=== PATIENT | female | born 1955 | race Caucasian/White ===

== ENCOUNTER 2016-12-20 05:29 | Outpatient (CLI) | payer MEDICARE, MEDICAID ==
[~2016-12-20] VITALS: Ht 157.5 cm; Wt 49.9 kg
== END 2016-12-20 12:55 ==
LOC: PREOP 05:29
PROVIDERS: ATTEND Surgery
DX: Z01.818 Encounter for other preprocedural examination (principal); R19.7 Diarrhea, unspecified; R10.30 Lower abdominal pain, unspecified

== ENCOUNTER 2016-12-22 10:55 | Day surgery (SDC) | payer MEDICARE, MEDICAID ==
[~2016-12-22] VITALS: Ht 157.5 cm; Wt 49.9 kg
--- OUTSIDE RECORDS SUMMARY | 2016-12-22 10:58 | XMS REPORT ---
Author Author DAYNE BRADSHAW [facility] eClinicalWorks Address Unknown Phone Unavailable Care Team Providers Care Burn Table Operator Name Role Phone BRADSHAWDAYNE CP Unavailable Allergies, Adverse Reactions, Alerts Substance Reaction Event Type Codeine Phosphate Info Not Available Drug Allergy Problems Problem Type Condition Code Onset Dates Condition Status Problem Other dyspnea and respiratory abnormalities 786.09 Active Problem Unspecified hearing loss 389.9 Active Problem Mixed hyperlipidemia E78.2 Active Assessment Weight loss R63.4 Active Problem Chest pain, other 786.59 Active Assessment Well woman exam Z01.419 Active Medications Medication Code System Code Instructions Start Date End Date Status Dosage Excedrin Migraine [facility] [address]-42 250-250-65 MG Orally every 6 hrs 2 tablets as needed Benadryl [facility] [address]-11 25 MG Orally every 6 hrs 1 capsule as needed Vitamin B 12 [facility] [address] 250 MCG Orally not defined Procedures Procedure Coding System Code Date SCR PAP SMER;NEW PT OBTAIN PREP&CONVY-LAB CPT-4 Q0091 May 11, 2016 LANDRUM VAG, DNA, DIR PROBE CPT-4 79042 May 11, 2016 [facility] VISIT NEW PATIENT CPT-4 G0466 May 11, 2016 Office Visit, Est Pt., Level 4 CPT-4 31444 May 11, 2016 [facility] VISIT ESTABLISHED PATIENT CPT-4 G0467 May 11, 2016 Vital Signs Date/Time: May 11, 2016 Cardiac Monitoring Heart Rate 78 bpm Weight 110.3 lbs Height 62 in BMI 20.17 Index Blood Pressure Diastolic 60 mmHg Blood Pressure Systolic 104 mmHg Results Name Result Date Reference Range Unit Abnormality Flag CULTURE, GENITAL ----Genital Culture, Routine Final report [id number] GC/CHLAMYDIA (SWAB OR URINE)-RAPID ----Chlamydia trachomatis, ELVIN Negative [id number] Negative ----Neisseria gonorrhoeae, ELVIN Negative [id number] Negative TRICHOMONAS (IN HOUSE) ----TRICHOMONAS negative [id number] ----Control + [id number] ----Lot # [id number] ----Exp date [id number] BACTERIAL VAGINOSIS (IN HOUSE) ----Exp date [id number] ----Control + [id number] ----Lot # [id number] ----RESULTS negative [id number] PDF Report ----PDF Report1 [facility] [id number] Mammogram, Bilateral Screening PAP TEST, HPV IF ASCUS ----HPV, high-risk Negative [id number] Negative ----. . [id number] Summary Purpose eClinicalWorks Submission
--- OUTSIDE RECORDS SUMMARY | 2016-12-22 10:59 | XMS REPORT | Continuity of Care Document ---
Author Author [facility] Address Unknown Phone Unavailable Allergies Active Description Code Type Severity Reaction Onset Reported/Identified Relationship to Patient Clinical Status Yes codeine Drug Allergy N/A N/A 08/28/2008 Yes Bactrim Drug Allergy N/A N/A 07/08/2010 Medications Problems Date Dx Coded Attending Type Code Diagnosis Diagnosed By 02/05/2008 NAUN BLANDON APRN R 786.05 shortness of breath 02/05/2008 JOSEFA ALVARENGA MD 786.05 shortness of breath 04/23/2008 NANU BLANDON APRN R 380.4 CERUMEN IMPACTION 04/23/2008 JOSEFA ALVARENGA MD 380.4 CERUMEN IMPACTION 08/28/2008 NAUN BLANDON APRN R 599.0 URINARY TRACT INFECTION 08/28/2008 NAUN BLANDON APRN R 724.2 lower back pain 08/28/2008 JOSEFA ALVARENGA MD 599.0 URINARY TRACT INFECTION 08/28/2008 JOSEFA ALVARENGA MD N 724.2 lower back pain 11/28/2009 NAUN BLANDON APRN R 462 PHARYNGITIS ACUTE 11/28/2009 NAUN BLANDON APRN R 465.9 UPPER RESPIRATORY INFECTION 11/28/2009 NAUN BLANDON APRN R 786.2 COUGH 11/28/2009 JOSEFA ALVARENGA MD N 462 PHARYNGITIS ACUTE 11/28/2009 JOSEFA ALVARENGA MD N 465.9 UPPER RESPIRATORY INFECTION 11/28/2009 JOSEFA ALVARENGA MD N 786.2 COUGH 07/08/2010 NAUN BLNADON APRN R 466.0 ACUTE BRONCHITIS 07/08/2010 JOSEFA ALVARENGA MD N 466.0 ACUTE BRONCHITIS 07/22/2010 NAUN BLANDON APRN R 611.71 BREAST PAIN 07/22/2010 NAUN BLANDON APRN R V72.31 ROUTINE GYNECOLOGICAL EXAMINATION 07/22/2010 JOSEFA ALVARENGA MD 611.71 BREAST PAIN 07/22/2010 JOSEFA ALVARENGA MD V72.31 ROUTINE GYNECOLOGICAL EXAMINATION 08/30/2013 NAUN BLANDON APRN 389.9 UNSPECIFIED HEARING LOSS 08/30/2013 NAUN BLANDON APRN 786.09 RESPIRATORY ABNORMALITY OTHER 08/30/2013 NAUN BLANDON APRN 786.59 OTHER CHEST PAIN 08/30/2013 JOSEFA ALVARENGA MD 389.9 UNSPECIFIED HEARING LOSS 08/30/2013 JOSEFA ALVARENGA MD 786.09 RESPIRATORY ABNORMALITY OTHER 08/30/2013 JOSEFA ALVARENGA MD 786.59 OTHER CHEST PAIN Procedures Code [place] [address] EKG, TRACING 12/2013 99371 ROUTINE VENIPUNCTURE 09/03/2013 OTOLARYNG REGGIE JENNINGS 09/03/2013 91526 LIPID PANEL 09/03 64373 CBC 09/03/2013 [id number] GFR CALC (RESULT ONLY) 09/03/2013 08114 CMP 09/03/2013 89315 TSH 09/03/2013 79080 BNP 09/04/2013 62738 UA W/ CULTURE IF INDICATED 01/01/2014 Results Encounters ACCT No. Visit Date/Time Discharge Status Pt. Type Provider Facility Loc./Unit Complaint [id number] 01/01/2014 12:59:00 01/01/2014 23: 59:59 CLS Outpatient JOSEFA ALVARENGA MD [id number] 09/03/2013 10:12:00 09/03/2013 23: 59:59 CLS Outpatient NAUN BLANDON APRN
[2016-12-22] MEDS ORDERED: LACTATED RINGERS 1,000 ML IV STA (12:11)
[2016-12-22 12:22] VITALS: BP 128/86
[2016-12-22] MEDS ORDERED: ASPI1TAB22 PO (12:27)
[2016-12-22] MEDS ORDERED: DIPH25CA79 PO (12:27)
[2016-12-22] MEDS ORDERED: proPOfol 200 MG/20 ML (DIPRIVAN) VIAL IV ONE (12:48)
--- NOTE | 2016-12-22 12:51 | Progress Note-Pre Operative ---
Pre-Operative Progress Note H&P Reviewed The H&P was reviewed, patient examined and no changes noted. Date Seen by Provider: Dec 22, 2016 Time Seen by Provider: 12:51 Date H&P Reviewed: Dec 22, 2016 Time H&P Reviewed: 12:51 Pre-Operative Diagnosis: lower abdominal pain diarrhea FRANKY DUNN DO Dec 22, 2016 12:51
[2016-12-22 13:35] VITALS: BP 157/89
[2016-12-22 14:00] VITALS: BP 145/81
[2016-12-22 14:10] VITALS: BP 145/81
--- NOTE | 2016-12-22 15:37 | Operative Report ---
Operative Report Date of Procedure/Surgery Dec 22, 2016 Surgeon (s) FRANKY DUNN DO Cell Tower Climber (s): na Post-Operative Diagnosis mucosal changes at anus Procedure Performed colonoscopy with random cold biopsies and cold biopsies anal mucosa Description of Procedure Anesthesia Type: Per Anesthesia Estimated blood loss (mL): scant Specimen(s) collected/removed random cold biopsies, cold biopsies anus Packing: na Description of the Procedure COMPLICATIONS: None. INDICATIONS: The patient is a 61 female who presented with lower quadrant abdominal pain and diarrhea. She was recommended to have colonoscopy. She understands the risks and benefits and wished to proceed with procedure. Consent was signed and on the chart. The patient was taken to the endoscopy suite, placed in left lateral recumbent position. Timeout was performed. Digital rectal exam was performed and there were no palpable polyps, masses or ulcerations, there was a rough feel to the anal mucosa. Scope was inserted in the rectum and advanced all the way to the cecum with minimal difficulty. Prep was adequate. Scope was then slowly retracted back. There were no polyps, masses or ulcerations within the cecum, ascending, transverse, descending and sigmoid colon. Once in the rectum, scope was attempted to be retroflexed but was unable due to narrow rectum. Scope was returned to its normal position, slowly withdrawn multiple times noting no pathology until the anus. There was some slight raised appearance of the mucosa, cold biopsies were obtaine and then scope withdrawn until completely removed. The patient tolerated procedure well without any complications. The patient was taken to recovery room in stable condition. RECOMMENDATIONS: Patient will follow up in the office to discuss pathology results 2-3 weeks. The patient would recommend repeat colonoscopy if she has any problems at that time; otherwise depending on pathology results. Findings of the Procedure see above Allergies and Home Medications Allergies Coded Allergies: codeine (Verified Allergy, Unknown, 12/20/16) Home Medications Aspirin/Acetaminophen/Caffeine 1 Each Tablet, 1 EACH PO DAILY PRN for HEADACHE, (Reported) Diphenhydramine HCl 25 Mg Capsule, 25 MG PO DAILY, (Reported) FRANKY DUNN DO Dec 22, 2016 3:37 pm
== END 2016-12-22 14:10 | disposition home or self-care (01) ==
LOC: ENDO 10:55
PROVIDERS: ATTEND Surgery
DX: R19.7 Diarrhea, unspecified (principal); D01.3 Carcinoma in situ of anus and anal canal
CPT/HCPCS: 88305

== ENCOUNTER 2017-09-13 05:37 | Outpatient (CLI) | payer MEDICARE, MEDICAID ==
[~2017-09-13] VITALS: Ht 157.5 cm; Wt 51.7 kg
[~2017-09-13 05:37] MED LIST: ASPI-789 PO; DIPH25CA79 PO
== END 2017-09-13 11:11 ==
LOC: PREOP 05:37
PROVIDERS: ATTEND Surgery
DX: Z01.818 Encounter for other preprocedural examination (principal); D01.3 Carcinoma in situ of anus and anal canal

== ENCOUNTER 2017-09-19 08:03 | Day surgery (SDC) | payer MEDICARE, MEDICAID ==
[~2017-09-19] VITALS: Ht 157.5 cm; Wt 51.7 kg
[2017-09-19] MEDS ORDERED: LACTATED RINGERS 1,000 ML IV STA (08:12)
[2017-09-19] MEDS ORDERED: LACTATED RINGERS 1,000 ML IV ONE (08:25)
[2017-09-19 08:35] VITALS: BP 126/77
[2017-09-19] MEDS ORDERED: proPOfol 200 MG/20 ML (DIPRIVAN) VIAL IV ONE (08:41)
[2017-09-19] MEDS ORDERED: MIDAZOLAM 2 MG/2 ML (VERSED) VIAL ONE (08:41)
--- NOTE | 2017-09-19 08:44 | Progress Note-Pre Operative ---
Pre-Operative Progress Note H&P Reviewed The H&P was reviewed, patient examined and no changes noted. Date Seen by Provider: Sep 19, 2017 Time Seen by Provider: 08:43 Date H&P Reviewed: Sep 19, 2017 Time H&P Reviewed: 08:43 Pre-Operative Diagnosis: anal intraepithelial neoplasia III FRANKY DUNN DO Sep 19, 2017 08:44
--- NOTE | 2017-09-19 09:16 | Progress Note-Post Operative ---
Post-Operative Progess Note Surgeon (s)/Boat Driver (s) Surgeon FRANKY DUNN DO Boat Driver: na Pre-Operative Diagnosis anal intraepithelial neoplasia III Post-Operative Diagnosis same Procedure & Operative Findings Date of Procedure 09/19/17 Procedure Performed/Findings flexible sigmoidoscopy with fulgaration of ain Anesthesia Type per boat puller Estimated Blood Loss Estimated blood loss (mL): na Specimens/Packing Specimens Removed na FRANKY DUNN DO Sep 19, 2017 09:16
--- NOTE | 2017-09-19 09:17 | Discharge Inst-Simple/Standard ---
Discharge Inst-Standard Patient Instructions/Follow Up Plan of Care/Instructions/FU: 3 weeks Donald Activity as Tolerated: Yes Discharge Diet: Regular Diet FRANKY DUNN DO Sep 19, 2017 09:17
--- NOTE | 2017-09-19 09:29 | Anesthesia-General Post-Op ---
MAC Patient Condition Mental Status/LOC: Same as Preop Cardiovascular: Satisfactory Nausea/Vomiting: Absent Respiratory: Satisfactory Pain: Controlled Complications: Absent Post Op Complications Complications None Follow Up Care/Instructions Patient Instructions None needed. Anesthesiology Discharge Order Discharge Order Patient is doing well, no complaints, stable vital signs, no apparent adverse anesthesia problems. No complications reported per nursing. RICKEY MILLS CRNA Sep 19, 2017 09:29
[2017-09-19 09:33] VITALS: BP 94/42
[2017-09-19 09:55] VITALS: BP 125/89
[2017-09-19 10:01] VITALS: BP 125/89
--- NOTE | 2017-09-19 10:47 | OPERATIVE REPORT ---
DATE OF SERVICE: 09/19/2017 PREOPERATIVE DIAGNOSIS: Anal intraepithelial neoplasia 3. POSTOPERATIVE DIAGNOSIS: Anal intraepithelial neoplasia 3. PROCEDURE: Flexible sigmoidoscopy with fulguration of AIN. SURGEON: Franky Bennett DO ANESTHESIA: Per DRYWALL TAPER HELPER. ESTIMATED BLOOD LOSS: None. COMPLICATIONS: None. INDICATIONS: The patient is a 62-year-old female with AIN3. She need follow up inspection and possible fulguration. She understands risks and benefits of procedure and wished to proceed with procedure. Consent was signed on the chart. DESCRIPTION OF PROCEDURE: The patient was taken to the endoscopy suite, placed in left lower recumbent position. Timeout was performed. Scope inserted into the anus. A digital rectal exam was performed. A small area that is palpable of some rough anal changes. Scope was inserted into the rectum and advanced all the way up into the sigmoid region of the colon. Prep was adequate. Scope was then slowly retracted back. There were no polyps, mass or ulcerations within the sigmoid colon. Scope was retracted back into the rectum where it was also retroflexed noting other pathology. As the scope was being slowly retracted back in the proximal portion of the anus, there is a small area consistent with anal intraepithelial neoplasia. This area was fulgurated. The scope was then slowly retracted back . The patient tolerated the procedure well without any complications and taken to recovery room in stable condition. Job ID: [id number] DocumentID: [id number] Dictated Date: 09/19/2017 09:24:09 Oral Surgery Technician Date: 09/19/2017 10:46:50 Dictated By: FRANKY BENNETT DO
== END 2017-09-19 10:03 | disposition home or self-care (01) ==
LOC: ENDO 08:03
PROVIDERS: ATTEND Surgery
DX: D01.3 Carcinoma in situ of anus and anal canal (principal)

== ENCOUNTER 2018-10-02 05:44 | Outpatient (CLI) | payer MEDICARE, MEDICAID ==
[~2018-10-02] VITALS: Ht 157.5 cm; Wt 51.7 kg
== END 2018-10-02 12:03 | disposition home or self-care (01) ==
LOC: PREOP 05:44
PROVIDERS: ATTEND Surgery
DX: Z01.818 Encounter for other preprocedural examination (principal)

== ENCOUNTER 2018-10-09 12:20 | Day surgery (SDC) | payer MEDICARE, MEDICAID ==
[~2018-10-09] VITALS: Ht 157.5 cm; Wt 51.7 kg
--- OUTSIDE RECORDS SUMMARY | 2018-10-09 12:25 | XMS REPORT ---
Author Author Migration, Doctor Organization [facility] Address Unknown Phone Unavailable Care Team Providers Care Bunch Maker Hand Name Role Phone Migration, Doctor Unavailable Unavailable PROBLEMS Type Condition ICD9-CM Code [id number] Code Onset Dates Condition Status SNOMED Code Problem Chest pain, other 786.59 Active 64486043 Problem Anal warts A63.0 Active 663409589 Problem Constipation, unspecified constipation type K59.00 Active 74067483 Problem Other dyspnea and respiratory abnormalities 786.09 Active 332340129 Problem Unspecified hearing loss 389.9 Active 19666873 Problem Mixed hyperlipidemia E78.2 Active 078519543 Problem Risky sexual behavior Z72.51 Active 479863705 ALLERGIES No Information ENCOUNTERS Encounter Location Date Diagnosis [facility] [id number] [place] [address] Jul, Left flank pain R10.9 and Pyelonephritis N12 [facility] [address] [address] May, Well woman exam (no gynecological exam) Z00.00 [facility] [id number] [place] [address] 24 Mar, 2018 LUQ abdominal pain R10.12 and Constipation, unspecified constipation type K59.00 [facility] [id number] [place] [address] 18 Feb, 2017 Encounter for immunization Z23 [place] [address] [address] 13 Feb, 2017 [place] [address] [address] 08 Feb, 2017 Risky sexual behavior Z72.51 [facility] [address] [address] 08 Feb, 2017 Anal warts A63.0 and Risky sexual behavior Z72.51 [facility] [address] [address] Apr, Well woman exam Z01.419 and Weight loss R63.4 [facility] [id number] [place] [address] 24 Nov, 2015 Urinary pain R30.9 and Urinary tract infection without hematuria, site unspecified N39.0 [facility] [id number] [place] [address] October, Bursitis M71.9 ; Weight loss R63.4 ; Routine check-up Z00.00 and Mixed hyperlipidemia E78.2 [facility] [id number] [place] [address] October, Bursitis M71.9 ; Weight loss R63.4 and Mixed hyperlipidemia E78.2 [facility] [id number] [place] [address] October, Headache, unspecified headache type R51 [facility] [id number] [place] [address] Sep, [facility] [id number] [place] [address] Sep, [facility] [address] [address] Dec, [facility] [id number] [place] [address] Dec, [facility] [id number] [place] [address] Aug, [facility] [id number] [place] [address]842- 14[address] Aug, [facility] [address] [address] Aug, [facility] [address] [address] Aug, [facility] [address] [facility] [id number] [address] Aug, [facility] [id number] [address] Aug, [facility] [address] [facility] [id number] [address] Feb, [facility] [address] [facility] [id number], [place] [address] Jun, IMMUNIZATIONS No Known Immunizations SOCIAL HISTORY Never Assessed REASON FOR VISIT [facility] [place] CARE VITAL SIGNS MEDICATIONS Medication Instructions Dosage Frequency Start Date End Date Duration Status Flexeril 10 mg 1 tablet by Oral route 3 times per day PRN muscle spasm Dec, Active RESULTS No Results PROCEDURES No Known procedures INSTRUCTIONS MEDICATIONS ADMINISTERED No Known Medications MEDICAL (GENERAL) HISTORY Type Description Date Surgical History tubal ligation Surgical History cataract/lazer surgery on eyes
--- OUTSIDE RECORDS SUMMARY | 2018-10-09 12:26 | XMS REPORT ---
Author Author SEAN ARTEAGA Organization [facility] Address [address] [place] [address] Care Team Providers Care Residential Sales Representative Name Role Phone SEAN ARTEAGA Unavailable PROBLEMS Type Condition ICD9-CM Code [id number] Code Onset Dates Condition Status SNOMED Code Problem Anal warts A63.0 Active 317931589 Problem Risky sexual behavior Z72.51 Active 625437852 Problem Other dyspnea and respiratory abnormalities 786.09 Active 877010165 Problem Chest pain, other 786.59 Active 59069428 Problem Mixed hyperlipidemia E78.2 Active 825822949 Problem Unspecified hearing loss 389.9 Active 53389191 ALLERGIES No Information ENCOUNTERS Encounter Location Date Diagnosis [facility] [id number] [place] [address] 18 Feb, 2017 Encounter for immunization Z23 [facility] [id number] [place] [address]- [address] 13 Feb, 2017 [place] [id number] [place] [address]- [address] 08 Feb, 2017 Risky sexual behavior Z72.51 [facility] [id number] [place] [address]- [address] 08 Feb, 2017 Anal warts A63.0 and Risky sexual behavior Z72.51 [facility] [id number] [place] [address]- 8[address] 16 Apr, 2016 Well woman exam Z01.419 and Weight loss R63.4 [facility] [id number] [place] [address] -[address] 24 Nov, 2015 Urinary pain R30.9 and Urinary tract infection without hematuria, site unspecified N39.0 [facility] [id number] [place] [address] October, Bursitis M71.9 ; Weight loss R63.4 ; Routine check-up Z00.00 and Mixed hyperlipidemia E78.2 [facility] [address], [place] [address] October, Bursitis M71.9 ; Weight loss R63.4 and Mixed hyperlipidemia E78.2 [facility] [address], [place] [address] October, Headache, unspecified headache type R51 [facility] [address], [place] [address] Sep, [facility] [id number] [place] [address] Sep, [facility] [id number] [address] Dec, [facility] [id number] [address] Dec, [facility] [address], [place] [address] Aug, [facility] [id number] [address] Aug, [facility] [address], [place] [address] Aug, [facility] [address], [place] [address] Aug, [facility] [address], [place] [address] Aug, [facility] [id number] [address] Aug, [facility] [address] Feb, [facility] [id number] [address] Jun, IMMUNIZATIONS Vaccine Route Administration Date Status FLUARIX QUAD (3 AND UP) 2017 IM Intramuscular Mar 13, 2017 Administered SOCIAL HISTORY Never Assessed REASON FOR VISIT Flu shot-- Chay Wilson RN PLAN OF CARE Activity Details Follow Up prn Reason: VITAL SIGNS MEDICATIONS Unknown Medications RESULTS No Results PROCEDURES Procedure Date Ordered Result Body Site FLUARIX QUAD (3 & UP)--2014Mar 13, 2017 SINGLE IMMUNIZATION ADMIN Mar 13, 2017 INSTRUCTIONS MEDICATIONS ADMINISTERED No Known Medications MEDICAL (GENERAL) HISTORY Type Description Date Surgical History tubal ligation
--- OUTSIDE RECORDS SUMMARY | 2018-10-09 12:26 | XMS REPORT ---
Author Author DAYNE Mercado Organization [facility] Address [address] [place] [address] Care Team Providers Care Supply Room Clerk Name Role Phone apolinarRehana DAYNE Unavailable PROBLEMS Type Condition ICD9-CM Code JJQ72-EF Code Onset Dates Condition Status SNOMED Code Problem Anal warts A63.0 Active 209343683 Problem Risky sexual behavior Z72.51 Active 416970112 Problem Other dyspnea and respiratory abnormalities 786.09 Active 679743812 Problem Chest pain, other 786.59 Active 25003898 Problem Mixed hyperlipidemia E78.2 Active 768294618 Problem Unspecified hearing loss 389.9 Active 28030597 ALLERGIES No Information ENCOUNTERS Encounter Location Date Diagnosis [facility] [id number] [place] [address] 18 Feb, 2017 Encounter for immunization Z23 [facility] [address] [address] 13 Feb, 2017 [address] [place] [id number] [place] [address]- 94[address] 08 Feb, 2017 Risky sexual behavior Z72.51 [facility] [id number] [place] [address]75- 74[address] 08 Feb, 2017 Anal warts A63.0 and Risky sexual behavior Z72.51 [facility] [id number] [place] [address] 87288- 6070 16 Apr, 2016 Well woman exam Z01.419 and Weight loss R63.4 [facility] [id number] [place] [address] -[address] 24 Nov, 2015 Urinary pain R30.9 and Urinary tract infection without hematuria, site unspecified N39.0 [facility] [id number] [address] October, Bursitis M71.9 ; Weight loss R63.4 ; Routine check-up Z00.00 and Mixed hyperlipidemia E78.2 [facility] [address], [place] [address] October, Bursitis M71.9 ; Weight loss R63.4 and Mixed hyperlipidemia E78.2 [facility] [address] [address] October, Headache, unspecified headache type R51 [facility] [id number] [place] [address]- [address] Sep, [facility] [id number] [address] Sep, [facility] [id number] [address] Dec, [facility] [address], [place] [address] Dec, [facility] [id number], [place] [address] Aug, [facility] [address], [place] [address] Aug, [facility] [address], [place] [address] Aug, [facility] [address] [address] Aug, [facility] [address], [place] [address]- [address] Aug, [facility] [id number] [address]- [address] Aug, [facility] [address] Feb, [facility] [address] [facility] [id number] [address] Jun, IMMUNIZATIONS No Known Immunizations SOCIAL HISTORY Never Assessed REASON FOR VISIT labs ordered by Dr. Bennett PLAN OF CARE VITAL SIGNS MEDICATIONS Unknown Medications RESULTS No Results PROCEDURES No Known procedures INSTRUCTIONS MEDICATIONS ADMINISTERED No Known Medications MEDICAL (GENERAL) HISTORY Type Description Date Surgical History tubal ligation
--- OUTSIDE RECORDS SUMMARY | 2018-10-09 12:26 | XMS REPORT ---
Author Author SEAN ARTEAGA Organization [facility] Address [address] [place] [address] Care Team Providers Care Check Out Cashier Name Role Phone SEAN ARTEAGA Unavailable PROBLEMS Type Condition ICD9-CM Code VRU14-MV Code Onset Dates Condition Status SNOMED Code Problem Anal warts A63.0 Active 149192085 Problem Risky sexual behavior Z72.51 Active 673644561 Problem Other dyspnea and respiratory abnormalities 786.09 Active 299123058 Problem Chest pain, other 786.59 Active 73200974 Problem Mixed hyperlipidemia E78.2 Active 121458552 Problem Unspecified hearing loss 389.9 Active [id number] ALLERGIES No Information ENCOUNTERS Encounter Location Date Diagnosis [facility] [id number] [place] [address] 48738- 9865 18 Feb, 2017 Encounter for immunization Z23 [facility] [id number] [place] [address] 70599- 2294 13 Feb, 2017 [place] [id number] [place] [address] 38202- 2046 08 Feb, 2017 Risky sexual behavior Z72.51 [facility] [id number] [place] [address] 89314- 1423 08 Feb, 2017 Anal warts A63.0 and Risky sexual behavior Z72.51 [facility] [id number] [place] [address] 59656- 0642 16 Apr, 2016 Well woman exam Z01.419 and Weight loss R63.4 [facility] [id number] [place] [address] 00379 -1261 24 Nov, 2015 Urinary pain R30.9 and Urinary tract infection without hematuria, site unspecified N39.0 [facility] [id number] [place] [address] 24591- 4332 October, Bursitis M71.9 ; Weight loss R63.4 ; Routine check-up Z00.00 and Mixed hyperlipidemia E78.2 [facility] [address], [place] [address] October, Bursitis M71.9 ; Weight loss R63.4 and Mixed hyperlipidemia E78.2 [facility] [address], [place] [address] October, Headache, unspecified headache type R51 [facility] [address] [address] Sep, [facility] [id number] [place] [address] 42979- 9314 Sep, [facility] [id number] [address] 7[address] Dec, [facility] [id number] [address] 6[address] Dec, [facility] [address], [place] [address] 113[address] Aug, [facility] [id number] [address] 53[address] Aug, [facility] [address], [place] [address] 6[address] Aug, [facility] [address], [place] [address] 9064 Aug, [facility] [address], [place] [address] 2689 Aug, [facility] [id number] [address] 6[address] Aug, [facility] [address] [address] Feb, [facility] [id number] [address] Jun, IMMUNIZATIONS No Known Immunizations SOCIAL HISTORY Never Assessed REASON FOR VISIT Lab results PLAN OF CARE VITAL SIGNS MEDICATIONS Unknown Medications RESULTS No Results PROCEDURES No Known procedures INSTRUCTIONS MEDICATIONS ADMINISTERED No Known Medications MEDICAL (GENERAL) HISTORY Type Description Date Surgical History tubal ligation
--- OUTSIDE RECORDS SUMMARY | 2018-10-09 12:26 | XMS REPORT ---
Author Author DAYNE Mercado Organization [facility] Address [address] [place] [address] Care Team Providers Care Shot Man Name Role Phone apolinarRehana DAYNE Unavailable PROBLEMS Type Condition ICD9-CM Code DQW87-NC Code Onset Dates Condition Status SNOMED Code Problem Anal warts A63.0 Active 922655636 Problem Risky sexual behavior Z72.51 Active 017942057 Problem Other dyspnea and respiratory abnormalities 786.09 Active 438193147 Problem Chest pain, other 786.59 Active 55263104 Problem Mixed hyperlipidemia E78.2 Active 115019594 Problem Unspecified hearing loss 389.9 Active 21613797 ALLERGIES No Information ENCOUNTERS Encounter Location Date Diagnosis [facility] [id number] [place] [address] 27620- 9870 18 Feb, 2017 Encounter for immunization Z23 [facility] [address] [address]- 8242 13 Feb, 2017 [place] [id number] [place] [address] 68194- 3677 08 Feb, 2017 Risky sexual behavior Z72.51 [facility] [id number] [place] [address] 64351- 9912 08 Feb, 2017 Anal warts A63.0 and Risky sexual behavior Z72.51 [facility] [id number] [place] [address] 64786- 6973 16 Apr, 2016 Well woman exam Z01.419 and Weight loss R63.4 [facility] [id number] [place] [address] 35157 -2522 24 Nov, 2015 Urinary pain R30.9 and Urinary tract infection without hematuria, site unspecified N39.0 [facility] [id number] [address] October, Bursitis M71.9 ; Weight loss R63.4 ; Routine check-up Z00.00 and Mixed hyperlipidemia E78.2 [facility] [address], [place] [address] 359[address] October, Bursitis M71.9 ; Weight loss R63.4 and Mixed hyperlipidemia E78.2 [facility] [address], [place] [address] October, Headache, unspecified headache type R51 [facility] [id number] [place] [address] 70528- 4583 Sep, [facility] [id number] [address] 9112 Sep, [facility] [id number] [address] 7312 Dec, [facility] [address], [place] [address]- 3[address] Dec, [facility] [id number] [address] Aug, [facility] [address], [place] [address]- 9330 Aug, [facility] [address], [place] [address] 2523 Aug, [facility] [address], [place] [address]- 9868 Aug, [facility] [address], [place] [address]- 9902 Aug, [facility] [id number], [place] [address] 9430 Aug, [facility] [address] [address] Feb, [facility] [address] [facility] [id number] [place] [address] Jun, IMMUNIZATIONS No Known Immunizations SOCIAL HISTORY Never Assessed REASON FOR VISIT Lab (walk-in)--[facility] PLAN OF CARE VITAL SIGNS MEDICATIONS Unknown Medications RESULTS Name Result Date Reference Range HIV ANTIGEN/ANTIBODY 2017-03-03 HIV Screen 4th Generation wRfx Non Reactive Non Reactive PROCEDURES Procedure Date Ordered Result Body Site LAB NOT BILLED BY [facility] Mar 03, 2017 VENIPJJ, ROUTINE* Mar 03, 2017 INSTRUCTIONS MEDICATIONS ADMINISTERED No Known Medications MEDICAL (GENERAL) HISTORY Type Description Date Surgical History tubal ligation
--- OUTSIDE RECORDS SUMMARY | 2018-10-09 12:26 | XMS REPORT ---
Author Author ANDREW SHI [facility] Address [address] [place] [address] Care Team Providers Care Dock Hand Name Role Phone ANDREW SHI Unavailable PROBLEMS Type Condition ICD9-CM Code OGV99-TL Code Onset Dates Condition Status SNOMED Code Problem Chest pain, other 786.59 Active 13827165 Problem Constipation, unspecified constipation type K59.00 Active 03280481 Problem Anal warts A63.0 Active 054248809 Problem Unspecified hearing loss 389.9 Active 17698960 Problem Other dyspnea and respiratory abnormalities 786.09 Active 241218522 Problem Risky sexual behavior Z72.51 Active 562019421 Problem Mixed hyperlipidemia E78.2 Active 255740501 ALLERGIES Substance Reaction Event Type Date Status Codeine Phosphate Unknown Drug Allergy Mar, Active ENCOUNTERS Encounter Location Date Diagnosis [facility] [id number] [place] [address] 26395 -5250 Mar, LUQ abdominal pain R10.12 and Constipation, unspecified constipation type K59.00 [facility] [address] [place] [address] 41068- 1008 18 Feb, 2017 Encounter for immunization Z23 [facility] [id number] [place] [address] 80749- 1255 13 Feb, 2017 [facility] [address] [place] [address] 70764- 2742 Feb, Risky sexual behavior Z72.51 [facility] [id number] [place] [address] 14132- 5748 Feb, Anal warts A63.0 and Risky sexual behavior Z72.51 [facility] [id number] [place] [address] 32270- 8930 Apr, Well woman exam Z01.419 and Weight loss R63.4 [facility] [address] [address] Nov, Urinary pain R30.9 and Urinary tract infection without hematuria, site unspecified N39.0 [facility] [id number] [place] [address] 01432- 5639 October, Bursitis M71.9 ; Weight loss R63.4 ; Routine check-up Z00.00 and Mixed hyperlipidemia E78.2 [facility] [id number] [place] [address] 97955- 7985 October, Bursitis M71.9 ; Weight loss R63.4 and Mixed hyperlipidemia E78.2 [facility] [id number] [place] [address] 63685 -8917 October, Headache, unspecified headache type R51 [facility] [id number] [place] [address] 70562- 3862 Sep, [facility] [id number] [place] [address] 70815- 1134 Sep, [facility] [id number] [place] [address] 16104- 9419 Dec, [facility] [address] [address]- 6693 Dec, [facility] [id number] [place] [address] 00210- 8774 Aug, [facility] [address] [place] [address] 67792- 9036 Aug, [facility] [id number] [place] [address] 38106- 9462 Aug, [facility] [address] [address]- 3619 Aug, [facility] [id number] [place] [address] 23016- 2546 Aug, [facility] [address] [facility] [id number] [place] [address]- 2546 Aug, [facility] [address] [facility] [id number] [address] 2546 Feb, [facility] [address] [facility] [id number] [place] [address] 2546 Jun, IMMUNIZATIONS No Known Immunizations SOCIAL HISTORY Never Assessed REASON FOR VISIT left side pain x3 days JStrasserRN PLAN OF CARE Activity Details Follow Up prn Reason: VITAL SIGNS Height 62 in 2018-04-18 Weight 114.4 lbs 2018-04-18 Temperature 97.7 degrees Fahrenheit 2018-04-18 Heart Rate 78 bpm 2018-04-18 Respiratory Rate 22 2018-04-18 BMI 20.92 kg/m2 2018-04-18 Blood pressure systolic 140 mmHg 2018-04-18 Blood pressure diastolic 82 mmHg 2018-04-18 MEDICATIONS Medication Instructions Dosage Frequency Start Date End Date Duration Status Benadryl 25 MG Orally every 6 hrs 1 capsule as needed 6h Active Ibuprofen 200 MG Orally Three times a day 1 tablet with food or milk as needed 8h Active Excedrin Migraine 250-250-65 MG Orally every 6 hrs 2 tablets as needed 6h Active RESULTS Name Result Date Reference Range UA LONG DIP (IN HOUSE) 2018-04-18 Lot # [id number] Exp date 05-25-18 Clarity clear Color dark yellow Odor none GLU negative EDIS negative KET negative SG 1.020 BLO negative pH 5.5 Protein negative URO 0.2 NIT negative DENIZ 1+ Lot # [id number] Exp date May 2018 Xray : Abdomen 2v (Upright and KUB) - IN HOUSE 2018-04-18 PROCEDURES Procedure Date Ordered Result Body Site X-RAY EXAM ABDOMEN 2 VIEWS Apr 18, 2018 URINALYSIS, AUTO, W/O SCOPE Apr 18, 2018 [facility] VISIT ESTABLISHED PATIENT Apr 18, 2018 INSTRUCTIONS MEDICATIONS ADMINISTERED No Known Medications MEDICAL (GENERAL) HISTORY Type Description Date Surgical History tubal ligation
--- OUTSIDE RECORDS SUMMARY | 2018-10-09 12:26 | XMS REPORT ---
Author Author SHIELA KUMAR Organization [facility] Address [address] [place] [address] Care Team Providers Care Procurement Services Manager Name Role Phone SHIELA KUMAR Unavailable PROBLEMS Type Condition ICD9-CM Code OCI10-OE Code Onset Dates Condition Status SNOMED Code Problem Chest pain, other 786.59 Active 24868592 Problem Constipation, unspecified constipation type K59.00 Active 23236991 Problem Anal warts A63.0 Active 034250113 Problem Unspecified hearing loss 389.9 Active 48413339 Problem Other dyspnea and respiratory abnormalities 786.09 Active 037366148 Problem Risky sexual behavior Z72.51 Active 075696358 Problem Mixed hyperlipidemia E78.2 Active 689356912 ALLERGIES Substance Reaction Event Type Date Status Codeine Phosphate Unknown Drug Allergy May, Active ENCOUNTERS Encounter Location Date Diagnosis [facility] [id number] [place] [address] 06715- 3538 May, Well woman exam (no gynecological exam) Z00.00 [facility] [id number] [place] [address] 57845 -0760 Mar, LUQ abdominal pain R10.12 and Constipation, unspecified constipation type K59.00 [facility] [id number] [place] [address] 17193- 3558 18 Feb, 2017 Encounter for immunization Z23 [facility] [id number] [place] [address] 18532- 6337 Feb, [place] [address] [address] Feb, Risky sexual behavior Z72.51 [facility] [id number] [place] [address] 11819- 5320 Feb, Anal warts A63.0 and Risky sexual behavior Z72.51 [facility] [id number] [place] [address] 21676- 5467 Apr, Well woman exam Z01.419 and Weight loss R63.4 [facility] [id number] [place] [address] 16481 -3773 24 Nov, 2015 Urinary pain R30.9 and Urinary tract infection without hematuria, site unspecified N39.0 [facility] [id number] [place] [address] 17612- 7594 October, Bursitis M71.9 ; Weight loss R63.4 ; Routine check-up Z00.00 and Mixed hyperlipidemia E78.2 [facility] [id number] [place] [address] 20052- 7827 October, Bursitis M71.9 ; Weight loss R63.4 and Mixed hyperlipidemia E78.2 [facility] [id number] [place] [address] 52583 -6636 October, Headache, unspecified headache type R51 [facility] [id number] [place] [address] 44500- 6957 Sep, [facility] [id number] [place] [address] 01616- 1737 Sep, [facility] [id number] [place] [address] 05505- 1204 Dec, [facility] [id number] [place] [address] 67331- 8927 Dec, [facility] [id number] [place] [address] 47178- 1763 Aug, [facility] [id number] [place] [address] 55100- 1404 Aug, [facility] [id number] [place] [address] 02239- 7397 Aug, [facility] [address] [place] 11 Aug, 2013 [facility] [address] [facility] [id number] [address]- [address]14 07 Aug, 2013 [facility] [address] [facility] [id number] 07 Aug, 2013 [facility] [address] [facility] [id number], [place] [address]- 6[address] 06 Feb, 2012 [facility] [address] [facility] [id number], [place] [address] 13 Jun, 2010 IMMUNIZATIONS No Known Immunizations SOCIAL HISTORY Never Assessed REASON FOR VISIT Well Woman Exam. Pap in 2015, results in documents. Mammogram in 2015 as well, results are in diagnostic imaging documents.-[facility] PLAN OF CARE Activity Details Follow Up w/ PCP Reason:routine f/u Pending Test LIPID PANEL Pending Test CMP Pending Test CBC Pending Test HEP C ANTIBODY W/ REFLEX HCV Pending Test THYROID ANALYZER Pending Test A1C VITAL SIGNS Height 62 in 2018-06-05 Weight 113.3 lbs 2018-06-05 Temperature 98.6 degrees Fahrenheit 2018-06-05 Heart Rate 98 bpm 2018-06-05 Respiratory Rate 22 2018-06-05 Oximetry 98 % 2018-06-05 BMI 20.72 kg/m2 2018-06-05 Blood pressure systolic 112 mmHg 2018-06-05 Blood pressure diastolic 68 mmHg 2018-06-05 MEDICATIONS Medication Instructions Dosage Frequency Start Date End Date Duration Status Excedrin Migraine 250-250-65 MG Orally every 6 hrs 2 tablets as needed 6h Active Ibuprofen 200 MG Orally Three times a day 1 tablet with food or milk as needed 8h Active Benadryl 25 MG Orally every 6 hrs 1 capsule as needed 6h Active RESULTS No Results PROCEDURES Procedure Date Ordered Result Body Site LAB NOT BILLED BY [facility] Jun 05, 2018 Hemoglobin Test Send Out 0 dollar Jun 05, 2018 [facility] VISIT ESTABLISHED PATIENT Jun 05, 2018 VENIPUNCT, ROUTINE* Jun 05, 2018 INSTRUCTIONS MEDICATIONS ADMINISTERED No Known Medications MEDICAL (GENERAL) HISTORY Type Description Date Surgical History tubal ligation Surgical History cataract/lazer surgery on eyes
--- OUTSIDE RECORDS SUMMARY | 2018-10-09 12:27 | XMS REPORT | Continuity of Care Document ---
Author Organization Unknown Address Unknown Allergies Active Description Code Type Severity Reaction Onset Reported/Identified Relationship to Patient Clinical Status Yes codeine Drug Allergy N/A N/A 08/28/2008 Yes Bactrim Drug Allergy N/A N/A 07/08/2010 Yes No Known Drug Allergies [id number] Drug Allergy Unknown N/A 12/20/2016 Yes codeine [id number] Drug Allergy Unknown N/A 09/13/2017 Medications There is no data. Problems Date Dx Coded Attending Type Code Diagnosis Diagnosed By 02/05/2008 NAUN BLANDON APRN R 786.05 shortness of breath 02/05/2008 JOSEFA ALVARENGA MD 786.05 shortness of breath 04/23/2008 NAUN BLANDON APRN R 380.4 CERUMEN IMPACTION 04/23/2008 JOSEFA ALVARENGA MD 380.4 CERUMEN IMPACTION 08/28/2008 NAUN BLANDON APRN R 599.0 URINARY TRACT INFECTION 08/28/2008 NAUN BLANDON APRN R 724.2 lower back pain 08/28/2008 JOSEFA ALVARENGA MD 599.0 URINARY TRACT INFECTION 08/28/2008 JOSEFA ALVARENGA MD 724.2 lower back pain 11/28/2009 NAUN BLANDON APRN R 462 PHARYNGITIS ACUTE 11/28/2009 NAUN BLANDON APRN R 465.9 UPPER RESPIRATORY INFECTION 11/28/2009 NAUN BLANDON APRN R 786.2 COUGH 11/28/2009 JOSEFA ALVARENGA MD 462 PHARYNGITIS ACUTE 11/28/2009 JOSEFA ALVARENGA MD 465.9 UPPER RESPIRATORY INFECTION 11/28/2009 JOSEFA ALVARENGA MD N 786.2 COUGH 07/08/2010 NAUN BLANDON APRN R 466.0 ACUTE BRONCHITIS 07/08/2010 JOSEFA ALVARENGA MD 466.0 ACUTE BRONCHITIS 07/22/2010 JAMIA INTERNAL COMMUNICATIONS MANAGER, NAUN R 611.71 BREAST PAIN 07/22/2010 JAMIA BELLAMY, NAUN R V72.31 ROUTINE GYNECOLOGICAL EXAMINATION 07/22/2010 JOSEFA ALVARENGA MD N 611.71 BREAST PAIN 07/22/2010 JOSEFA ALVARENGA MD N V72.31 ROUTINE GYNECOLOGICAL EXAMINATION 08/30/2013 JAMIA BELLAMY, NAUN R 389.9 UNSPECIFIED HEARING LOSS 08/30/2013 JAMIA BELLAMY, NAUN R 786.09 RESPIRATORY ABNORMALITY OTHER 08/30/2013 JAMIA BELLAMY, NAUN R 786.59 OTHER CHEST PAIN 08/30/2013 JOSEFA ALVARENGA MD N 389.9 UNSPECIFIED HEARING LOSS 08/30/2013 JOSEFA ALVARENGA MD N 786.09 RESPIRATORY ABNORMALITY OTHER 08/30/2013 JOSEFA ALVARENGA MD N 786.59 OTHER CHEST PAIN 05/18/2016 DAYNE BRADSHAW FOUNTAIN PEN TURNER Ot Z12.31 ENCNTR SCREEN MAMMOGRAM FOR MALIGNANT NE 05/18/2016 DAYNE BRADSHAW FOUNTAIN PEN TURNER Ot Z12.31 ENCNTR SCREEN MAMMOGRAM FOR MALIGNANT NE 06/08/2016 DAYNE BRADSHAW FOUNTAIN PEN TURNER Ot Z12.31 ENCNTR SCREEN MAMMOGRAM FOR MALIGNANT NE 06/17/2016 DAYNE BRADSHAW FOUNTAIN PEN TURNER Ot Z12.31 ENCNTR SCREEN MAMMOGRAM FOR MALIGNANT NE 12/16/2016 DAYNE BRADSHAW FOUNTAIN PEN TURNER Ot Z12.31 ENCNTR SCREEN MAMMOGRAM FOR MALIGNANT NE 12/20/2016 FRANKY DUNN DO Ot R10.30 LOWER ABDOMINAL PAIN, UNSPECIFIED 12/20/2016 FRANKY DUNN DO Ot R19.7 DIARRHEA, UNSPECIFIED 12/20/2016 FRANKY DUNN DO D Ot Z01.818 ENCOUNTER FOR OTHER PREPROCEDURAL EXAMIN 12/21/2016 FRANKY DUNN DO D Ot R10.30 LOWER ABDOMINAL PAIN, UNSPECIFIED 12/21/2016 FRANKY DUNN DO D Ot R19.7 DIARRHEA, UNSPECIFIED 12/21/2016 FRANKY DUNN DO Ot Z01.818 ENCOUNTER FOR OTHER PREPROCEDURAL EXAMIN 12/22/2016 FRANKY DUNN DO Ot 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 12/22/2016 FRANKY DUNN DO Ot R19.7 DIARRHEA, UNSPECIFIED 12/30/2016 DUNN DO, FRANKY D Ot 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 12/30/2016 DUNN DOFRANKY Ot R19.7 DIARRHEA, UNSPECIFIED 09/13/2017 DUNN DO, FRANKY Johnson Ot 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 09/13/2017 DUNN FRANKY GIPSON Ot Z01.818 ENCOUNTER FOR OTHER PREPROCEDURAL EXAMIN 09/14/2017 DUNN DOFRANKY Ot 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 09/14/2017 DUNN DOFRANKY Ot Z01.818 ENCOUNTER FOR OTHER PREPROCEDURAL EXAMIN 09/14/2017 DAYNE BRADSHAW FOUNTAIN PEN TURNER Ot Z12.31 ENCNTR SCREEN MAMMOGRAM FOR MALIGNANT NE 09/19/2017 [place] DOFRANKY Ot 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 09/21/2017 DUNN FRANKY GIPSON Ot 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 09/24/2018 DAYNE BRADSHAW FOUNTAIN PEN TURNER Ot Z12.31 ENCNTR SCREEN MAMMOGRAM FOR MALIGNANT NE 10/02/2018 DUNN FRANKY GIPSON Ot Z01.818 ENCOUNTER FOR OTHER PREPROCEDURAL EXAMIN 10/08/2018 DUNN FRANKY GIPSON Ot Z01.818 ENCOUNTER FOR OTHER PREPROCEDURAL EXAMIN 10/09/2018 DAYNE BRADSHAW FOUNTAIN PEN TURNER Ot Z12.31 ENCNTR SCREEN MAMMOGRAM FOR MALIGNANT NE Procedures Code [place] [address] EKG, TRACING 08/30/2013 67571 ROUTINE VENIPUNCTURE 09/03/2013 OTOLARYNG REGGIE JENNINGS 09/03/2013 34475 LIPID PANEL 09/03/2013 49655 CBC 09/03/2013 2118653 GFR CALC (RESULT ONLY) 09/03/2013 84509 CMP 09/03/2013 46741 TSH 09/03/2013 00860 BNP 09/04/2013 46797 UA W/ CULTURE IF INDICATED 01/01/2014 Results Test Result Range Chlamydia/GC Amplification - 05/11/16 14:15 Chlamydia trachomatis, ELVIN Negative Negative Neisseria gonorrhoeae, ELVIN Negative Negative Genital Culture, Routine - 05/11/16 14:15 Genital Culture, Routine Note Pap Lb, rfx HPV ASCU - 05/11/16 14:15 DIAGNOSIS: Comment Specimen adequacy: Comment Clinician provided ICD10: Comment Performed by: Comment Electronically signed by: Comment . . Pathologist provided ICD10: Comment Note: Comment . Comment HPV, high-risk - 05/11/16 14:15 HPV, high-risk Negative Negative HIV ANTIGEN/ANTIBODY - 03/03/17 11:29 HIV Screen 4th Generation wRfx Non Reactive Non Reactive Panel [id number] - 03/03/17 11:29 HIV Screen 4th Generation wRfx Non Reactive Non Reactive THYROID ANALYZER - 06/05/18 13:37 TSH 2.51 mIU/L 0.40-4.50 A1C - 06/05/18 13:37 HEMOGLOBIN A1c 5.0 % of total Hgb <5.7 Encounters ACCT No. Visit Date/Time Discharge Status Pt. Type Provider Facility Loc./Unit Complaint [id number] 01/01/2014 12:59:00 01/01/2014 23:59:59 CLS Outpatient JOSEFA ALVARENGA MD [id number] 09/03/2013 10:12:00 09/03/2013 23:59:59 CLS Outpatient NAUN BLANDON APRN [id number] 05/15/2016 13:05:00 Document Registration [id number] 10/02/2018 05:44:00 10/02/2018 12:03:00 DIS Outpatient FRANKY DUNN DO [facility] PREOP COLONOSCOPY [id number] 09/19/2017 08:03:00 09/19/2017 10:03:00 DIS Outpatient FRANKY DUNN DO [facility] ENDO ANAL INTRAEPITHELIAL NEOPLASIA III [id number] 09/13/2017 05:37:00 09/13/2017 11:11:00 DIS Outpatient FRANKY DUNN DO [facility] PREOP FLEX SIGMOIDOSCOPY [id number] 12/22/2016 10:55:00 12/22/2016 14:10:00 DIS Outpatient FRANKY DUNN DO [facility] ENDO DIARRHEA/LOWER ABD PAIN [id number] 12/20/2016 05:29:00 12/20/2016 12:55:00 DIS Outpatient FRANKY DUNN DO [facility] PREOP DIARRHEA/LOWER ABD PAIN [id number] 05/17/2016 12:58:00 05/17/2016 23:59:59 CLS Outpatient DAYNE BRADSHAW [facility] RAD SCREEING [id number] 10/09/2018 12:20:00 ACT Outpatient FRANKY DUNN DO [facility] ENDO SCREENING [id number] 07/27/2018 16:45:00 07/27/2018 23:59:59 CLS Outpatient CHANDLER MONROE, SEAN VARNER [facility] [id number] 06/05/2018 13:00:00 Document Registration [id number] 03/03/2017 11:20:00 Document Registration [id number] 03/04/2017 12:07:00 Document Registration [id number] 05/23/2016 18:05:00 Document Registration
[2018-10-09 12:40] VITALS: BP 133/78
[2018-10-09] MEDS ORDERED: LACTATED RINGERS 1,000 ML IV PRN (12:45)
[2018-10-09] MEDS ORDERED: LACTATED RINGERS 1,000 ML IV ONE (12:47)
[2018-10-09] MEDS ORDERED: PROPOFOL INJECTION 50 ML IV ONE (14:19)
[2018-10-09] MEDS ORDERED: MIDAZOLAM 2 MG/2 ML (VERSED) VIAL ONE (14:19)
--- NOTE | 2018-10-09 14:34 | Progress Note-Pre Operative ---
Pre-Operative Progress Note H&P Reviewed The H&P was reviewed, patient examined and no changes noted. Date Seen by Provider: Oct 09, 2018 Time Seen by Provider: 14:33 Date H&P Reviewed: Oct 09, 2018 Time H&P Reviewed: 14:33 Pre-Operative Diagnosis: screening colonoscopy, ain 3 FRANKY DUNN DO Oct 09, 2018 14:34
--- NOTE | 2018-10-09 15:03 | Progress Note-Post Operative ---
Post-Operative Progess Note Surgeon (s)/Water Safety Instructor (s) Surgeon FRANKY DUNN DO Water Safety Instructor: na Pre-Operative Diagnosis screening colonoscopy, ain 3 Post-Operative Diagnosis anal mucosal change Procedure & Operative Findings Date of Procedure 10/09/18 Procedure Performed/Findings egd c biopsy and fulguration Anesthesia Type per traverse rod assembler Estimated Blood Loss Estimated blood loss (mL): na Specimens/Packing Specimens Removed anal mucosa FRANKY DUNN DO Oct 09, 2018 15:03
--- NOTE | 2018-10-09 15:11 | Discharge Inst-Simple/Standard ---
Discharge Inst-Standard Patient Instructions/Follow Up Plan of Care/Instructions/FU: 2 weeks Donald Activity as Tolerated: Yes Discharge Diet: Regular Diet FRANKY DUNN DO Oct 09, 2018 15:11
[2018-10-09 15:15] VITALS: BP 113/94
[2018-10-09 15:41] VITALS: BP 121/89
[2018-10-09 15:50] VITALS: BP 121/89
--- NOTE | 2018-10-10 02:01 | OPERATIVE REPORT ---
DATE OF SERVICE: 10/09/2018 PREOPERATIVE DIAGNOSIS: Screening colonoscopy, AIN3. POSTOPERATIVE DIAGNOSIS: Anal mucosal change, normal colon. PROCEDURE: Colonoscopy with biopsy and fulguration. SURGEON: Franky Bennett DO ANESTHESIA: Per DIANETIC COUNSELOR. ESTIMATED BLOOD LOSS: None. COMPLICATIONS: None. INDICATIONS: The patient is a 63-year-old female with history of AIN3. The patient is here for screening colonoscopy. She understands risks and benefits of procedure and wished to proceed with procedure. Consent was signed on the chart. DESCRIPTION OF PROCEDURE: The patient was taken to the endoscopy suite, placed in left lateral recumbent position. Digital rectal exam was performed. There was some slight mucosal change palpable. No polyps, masses or ulcerations. Scope was inserted in the rectum and advanced all the way to the cecum with minimal difficulty. Prep was adequate with irrigation and suction. Scope was then slowly retracted back. There were no polyps, mass or ulcerations within the cecum, ascending, transverse, descending and sigmoid colon. Once in the rectum, scope was attempted to be retroflexed, but too narrow. Multiple insertions and retractions were made. Mucosal change was seen at the anorectal junction. Biopsy and fulguration was performed to this area and the scope was then slowly retracted back until completely removed, noting no other pathology. The patient tolerated procedure well without any complications. She was taken to recovery room in stable condition. RECOMMENDATIONS: The patient will follow up in the office in 2 weeks to discuss pathology results. We would repeat colonoscopy in 3 to 5 years. We will await biopsy results. Job ID: [id number] DocumentID: [id number] Dictated Date: 10/09/2018 15:05:51 Head Chef Date: 10/10/2018 01:21:28 Dictated By: FRANKY BENNETT DO [facility]OSPITALElizabeth
== END 2018-10-09 15:50 | disposition home or self-care (01) ==
LOC: ENDO 12:20
PROVIDERS: ATTEND Surgery
DX: Z12.11 Encounter for screening for malignant neoplasm of colon (principal); D01.3 Carcinoma in situ of anus and anal canal; G43.909 Migraine, unspecified, not intractable, without status migrainosus; Z87.891 Personal history of nicotine dependence

== ENCOUNTER → 2020-02-11 | Outpatient (CLI) | payer MEDICARE, MEDICAID | END | disposition home or self-care (01) | LOC: PREOP 05:43 | PROVIDERS: ATTEND Surgery | DX: Z01.818 Encounter for other preprocedural examination (principal) ==

== ENCOUNTER 2020-02-18 12:10 | Day surgery (SDC) | payer MEDICARE, MEDICAID ==
[~2020-02-18] VITALS: Ht 157.5 cm; Wt 54.1 kg
[2020-02-18] MEDS ORDERED: LACTATED RINGERS 1,000 ML IV ONE (12:11)
[2020-02-18 12:15] VITALS: BP 152/90
[2020-02-18] MEDS ORDERED: LACTATED RINGERS 1,000 ML IV STA (12:32)
--- NOTE | 2020-02-18 13:05 | Progress Note-Pre Operative ---
Pre-Operative Progress Note H&P Reviewed The H&P was reviewed, patient examined and no changes noted. Date Seen by Provider: Feb 18, 2020 Time Seen by Provider: 13:05 Date H&P Reviewed: Feb 18, 2020 Time H&P Reviewed: 13:05 Pre-Operative Diagnosis: hx ain III FRANKY DUNN DO Feb 18, 2020 13:05
[2020-02-18] MEDS ORDERED: FLEET ENEMA ADULT 1 EA BTL ONE ×2 (13:18→13:37)
[2020-02-18] MEDS ORDERED: proPOfol 200 MG/20 ML (DIPRIVAN) VIAL IV ONE (13:21)
[2020-02-18 15:00] VITALS: BP 119/63
--- NOTE | 2020-02-18 15:01 | Discharge Inst-Simple/Standard ---
Discharge Inst-Standard Patient Instructions/Follow Up Plan of Care/Instructions/FU: 1 year Donald Activity as Tolerated: Yes Discharge Diet: Regular Diet FRANKY DUNN DO Feb 18, 2020 15:01
--- NOTE | 2020-02-18 15:02 | Progress Note-Post Operative ---
Post-Operative Progess Note Surgeon (s)/Manual Control Auger Press Operator (s) Surgeon FRANKY DUNN DO Manual Control Auger Press Operator: na Pre-Operative Diagnosis hx ain III Post-Operative Diagnosis normal flex sig Procedure & Operative Findings Date of Procedure 02/18/20 Procedure Performed/Findings flexible sigmoidoscopy Anesthesia Type per strap folding machine operator Estimated Blood Loss Estimated blood loss (mL): na Specimens/Packing Specimens Removed na FRANKY DUNN DO Feb 18, 2020 15:02
[2020-02-18 15:05] VITALS: BP 114/62
[2020-02-18 15:10] VITALS: BP 111/58
[2020-02-18 15:40] VITALS: BP 137/80
--- NOTE | 2020-02-18 15:42 | Anesthesia-General Post-Op ---
MAC Patient Condition Mental Status/LOC: Same as Preop Cardiovascular: Satisfactory Nausea/Vomiting: Absent Respiratory: Satisfactory Pain: Controlled Complications: Absent Post Op Complications Complications None Follow Up Care/Instructions Patient Instructions None needed. Anesthesiology Discharge Order Discharge Order Patient is doing well, no complaints, stable vital signs, no apparent adverse anesthesia problems. No complications reported per nursing. JASWANT LIU CRNA Feb 18, 2020 15:42
[2020-02-18 15:43] VITALS: BP 137/80
--- NOTE | 2020-02-19 00:07 | OPERATIVE REPORT ---
DATE OF SERVICE: 02/18/2020 PREOPERATIVE DIAGNOSIS: History of AIN3. POSTOPERATIVE DIAGNOSIS: Normal flexible sigmoidoscopy. PROCEDURE: Flexible sigmoidoscopy. SURGEON: Franky Bennett DO ANESTHESIA: Per PARACHUTIST/COMBATANT DIVER QUALIFIED. ESTIMATED BLOOD LOSS: None. COMPLICATIONS: None. INDICATIONS: The patient is a 65-year-old female needing flexible sigmoidoscopy for surveillance. She understands risks and benefits of procedure and wished to proceed with procedure. Consent was signed in the chart. DESCRIPTION OF PROCEDURE: The patient was taken to the endoscopy suite, placed in left lateral recumbent position. Timeout was performed. Digital rectal exam was performed. There were no palpable polyps, masses or ulcerations. Scope was inserted in the rectum, advanced all the way through the rectum into the sigmoid. Prep was adequate. Scope was then slowly retracted back. There were no polyps, masses or ulcerations visualized within the sigmoid or in the rectum, scope was attempted to be retroflexed, however, unable due to the being narrow rectum, scope was then slowly retracted multiple times, noting no other pathology. Scope was slowly retracted back until completely removed. RECOMMENDATIONS: The patient will need repeat evaluation in one year. Any issues before that be seen at that time. Job ID: [id number] DocumentID: [id number] Dictated Date: 02/18/2020 15:04:25 Flange Machine Operator Date: 02/19/2020 00:06:17 Dictated By: FRANKY BENNETT DO
== END 2020-02-18 15:40 | disposition home or self-care (01) ==
LOC: ENDO 12:10
PROVIDERS: ATTEND Surgery
DX: Z86.004 Personal history of in-situ neoplasm of other and unspecified digestive organs (principal); Z87.891 Personal history of nicotine dependence; E78.5 Hyperlipidemia, unspecified; Z79.899 Other long term (current) drug therapy

== ENCOUNTER → 2020-03-03 | Outpatient (CLI) | payer MEDICARE, MEDICAID ==
--- NOTE | 2020-03-03 19:12 | Diagnostic Imaging Report ---
INDICATION: Routine screening. COMPARISON is made with prior mammogram from 05/17/2016. 2-D and 3-D bilateral screening mammography was performed with CAD. Both breasts are heterogeneously dense, limiting the sensitivity of mammography. There are vascular calcifications present. No mass or malignant-appearing microcalcifications are seen. Axillae are unremarkable. IMPRESSION: BI-RADS Category 2. No mammographic features suspicious for malignancy are identified. ACR BI-RADS Category 2: Benign findings. Result letter will be mailed to the patient. Note: At least 10% of breast cancer is not imaged by mammography. Dictated by: Dictated on workstation # [id number]
== END ==
LOC: RAD 10:30
PROVIDERS: ATTEND Nurse Practitioner Family
DX: Z12.31 Encounter for screening mammogram for malignant neoplasm of breast (principal)
CPT/HCPCS: 77063; 77067

== ENCOUNTER 2022-07-27 05:37 | Outpatient (CLI) | payer MEDICARE, MEDICAID ==
[~2022-07-27] VITALS: Ht 160 cm; Wt 57.6 kg
[~2022-07-27 05:37] MED LIST changes: -ASPI-789 PO; +ASPI1TAB23 PO
[2022-08-10] MEDS ORDERED: ATOR40TA70 PO (15:32)
[2022-08-10] MEDS ORDERED: FLUT15.845 NS (15:32)
[2022-08-10] MEDS ORDERED: ALEN70TA80 PO (15:32)
== END 2022-08-10 15:42 | disposition home or self-care (01) ==
LOC: PREOP 05:37
PROVIDERS: ATTEND Surgery
DX: Z01.818 Encounter for other preprocedural examination (principal)

== ENCOUNTER 2022-12-24 18:15 | Emergency (ER) | payer MEDICARE ==
[~2022-12-24] VITALS: Ht 157.5 cm; Wt 54.0 kg
[~2022-12-24 18:15] MED LIST changes: +ALEN70TA80 PO; +ATOR40TA70 PO; +FLUT15.845 NS
[2022-12-24] MEDS ORDERED: morphine INJ 10 MG/ML 1ML (SYR OR VIAL) IVP STA ×2 (18:27→19:45)
--- NOTE | 2022-12-24 18:27 | ED Fall/Injury ---
General Chief Complaint: Hip/Pelvic Problems Stated Complaint: FALL Nursing Triage Note: PT TO ROOM 06 VIA [facility] WITH C/O LEFT HIP PAIN AFTER FALLING. PT STATES SHE WAS STANDING ON HER COUCH HANGING CURTAINS AND FELL LANDING ON HER LEFT HIP. PT DENIES LOC. PT DENIES HITTING HEAD. PT REPORTS DIZZYNESS AFTER FALLING. Source: patient, EMS Exam Limitations: other (Hard of hearing) History of Present Illness Date Seen by Provider: Dec 24, 2022 Time Seen by Provider: 18:20 Initial Comments 67-year-old woman presents to the emergency room via EMS after having a fall in her home. She was standing on the couch hanging some curtains when she lost her balance and fell onto her left hip. She denies any head or neck injury. She reports feeling lightheaded prior to the fall and believes that is because she had not eaten at all today prior to that. She is very hard of hearing and wears hearing aids. Presents a challenge during collection of history. She has been unable to stand or walk on her left leg due to the pain in her hip. She denies any chest pain or other symptoms associated with the lightheadedness. Allergies and Home Medications Allergies Coded Allergies: codeine (Verified Allergy, Unknown, 09/13/17) Patient Home Medication List Home Medication List Reviewed: Yes Alendronate Sodium (Alendronate Sodium) 70 Mg Tablet, 70 MG PO DAILY, (Reported) Entered as Reported by: TWILA CORTEZ on 08/10/221531 Atorvastatin Calcium (Atorvastatin Calcium) 40 Mg Tablet, 40 MG PO DAILY, (Reported) Entered as Reported by: TWILA CORTEZ on 08/10/221531 Fluticasone Propionate (Fluticasone Propionate) 50 Mcg/Actuation Ridge.susp, 15.8 ML NS DAILY, (Reported) Entered as Reported by: TWILA CORTEZ on 08/10/221531 Review of Systems Review of Systems Constitutional: no symptoms reported Eyes: No Symptoms Reported Ears, Nose, Mouth, Throat: see HPI Respiratory: no symptoms reported Cardiovascular: no symptoms reported Gastrointestinal: no symptoms reported Genitourinary: no symptoms reported : No Musculoskeletal: see HPI Skin: no symptoms reported Psychiatric/Neurological: No Symptoms Reported Past Jmorych-Audlah-Jneawu Hx Patient Social History Tobacco Use?: No Smoking Status: Never a Smoker Smokeless Tobacco Frequency: Never a User Use of E-Cig and/or Vaping dev: No Use of E-Cig and/or Vaping Elijah: Never a User Substance use?: No Alcohol Use?: Yes Alcohol type: Beer Alcohol Frequency: Couple times a week Pt feels they are or have been: No Immunizations Up To Date Tetanus Booster (TDap): Unknown Seasonal Allergies Seasonal Allergies: Yes Past Medical History Surgeries: Yes Abdominal (Endoscopy), Tubal Ligation Respiratory: No Cardiac: Yes High Cholesterol Neurological: Yes Headaches /Migraines Reproductive Disorders: No Sexually Transmitted Disease: No HIV/AIDS: No Genitourinary: No Gastrointestinal: Yes Polyps Musculoskeletal: Yes Osteoporosis Endocrine: No HEENT: No (cataracts removed) Loss of Vision: Bilateral Hearing Impairment: Hard of Hearing Cancer: Yes (Anal intraepithelial neoplasia III) Psychosocial: No Integumentary: No Blood Disorders: No Adverse Reaction/Blood Tranf: No (N/A) Physical Exam Vital Signs Vital Signs - First Documented 12/24/22 18:18 Temp 36.8 Pulse 86 Resp 19 B/P (MAP) 136/116 (123) Pulse Ox 100 O2 Delivery Room Air Capillary Refill : Less Than 3 Seconds Height, Weight, BMI Height: 5'2.00" Weight: 114lbs. 0.0oz. 51.885611bv; 21.00 BMI Method: General Appearance: WD/WN, moderate distress HEENT: PERRL/EOMI, normal ENT inspection Neck: normal inspection Cardiovascular: regular rate, rhythm, no edema, no murmur Respiratory: lungs clear, normal breath sounds, no respiratory distress Gastrointestinal: non tender, soft; No distended Extremities: normal inspection, other (Left lateral hip tender to palpation. Pain with rotation of left hip. Distal exam unremarkable and pedal pulses palpable bilaterally) Neurologic/Psychiatric: no motor/sensory deficits, alert, normal mood/affect, oriented x 3, other (Very hard of hearing) Skin: normal color, warm/dry [place] Coma Score Best Eye Response: (4) Open Spontaneously Best Verbal Response: (5) Oriented Best Motor Response: (6) Obeys Commands [place] Total: 15 Progress/Results/Core Measures Results/Orders Lab Results Laboratory Tests Test 12/24/22 18:29 12/24/22 19:02 12/24/22 19:22 Range/Units White Blood Count 13.1 H 4.3-11.0 10^3/uL Red Blood Count 4.76 3.80-5.11 10^6/uL Hemoglobin 14.6 11.5-16.0 g/dL Hematocrit 43 35-52 % Mean Corpuscular Volume 90 80-99 fL Mean Corpuscular Hemoglobin 31 25-34 pg Mean Corpuscular Hemoglobin Concent 34 32-36 g/dL Red Cell Distribution Width 12.9 10.0-14.5 % Platelet Count 279 130-400 10^3/uL Mean Platelet Volume 10.1 9.0-12.2 fL Immature Granulocyte % (Auto) 1 % Neutrophils (%) (Auto) 86 H 42-75 % Lymphocytes (%) (Auto) 9 L 12-44 % Monocytes (%) (Auto) 4 0-12 % Eosinophils (%) (Auto) 0 0-10 % Basophils (%) (Auto) 0 0-10 % Neutrophils # (Auto) 11.3 H 1.8-7.8 10^3/uL Lymphocytes # (Auto) 1.1 1.0-4.0 10^3/uL Monocytes # (Auto) 0.6 0.0-1.0 10^3/uL Eosinophils # (Auto) 0.0 0.0-0.3 10^3/uL Basophils # (Auto) 0.0 0.0-0.1 10^3/uL Immature Granulocyte # (Auto) 0.1 0.0-0.1 10^3/uL Prothrombin Time 13.0 12.2-14.7 SEC INR Comment 1.0 0.8-1.4 Activated Partial Thromboplast Time 29 24-35 SEC Sodium Level 140 135-145 MMOL/L Potassium Level 3.5 L 3.6-5.0 MMOL/L Chloride Level 110 H 98-107 MMOL/L Carbon Dioxide Level 17 L 21-32 MMOL/L Anion Gap 13 5-14 MMOL/L Blood Urea Nitrogen 9 7-18 MG/DL Creatinine 1.09 0.60-1.30 MG/DL Estimat Glomerular Filtration Rate 55 BUN/Creatinine Ratio 8 Glucose Level 123 H 70-105 MG/DL Calcium Level 9.9 8.5-10.1 MG/DL Corrected Calcium 9.5 8.5-10.1 MG/DL Magnesium Level 1.6 1.6-2.4 MG/DL Total Bilirubin 1.1 H 0.1-1.0 MG/DL Aspartate Amino Transf (AST/SGOT) 23 5-34 U/L Alanine Aminotransferase (ALT/SGPT) 19 0-55 U/L Alkaline Phosphatase 110 40-136 U/L Myoglobin 56.2 10.0-92.0 NG/ML Troponin I < 0.028 <0.028 NG/ML Total Protein 7.2 6.4-8.2 GM/DL Albumin 4.5 3.2-4.5 GM/DL Serum Alcohol < 10 <10 MG/DL Urine Color YELLOW Urine Clarity CLEAR Urine pH 6.0 5-9 Urine Specific [place] 1.020 1.016-1.022 Urine Protein NEGATIVE NEGATIVE Urine Glucose (UA) NEGATIVE NEGATIVE Urine Ketones NEGATIVE NEGATIVE Urine Nitrite NEGATIVE NEGATIVE Urine Bilirubin NEGATIVE NEGATIVE Urine Urobilinogen 0.2 < = 1.0 MG/DL Urine Leukocyte Esterase TRACE H NEGATIVE Urine RBC (Auto) NEGATIVE NEGATIVE Urine RBC 0-2 /HPF Urine WBC 0-2 /HPF Urine Squamous Epithelial Cells 5-10 /HPF Urine Crystals PRESENT H /LPF Urine Amorphous Sediment FEW BERENICE URATES H /LPF Urine Bacteria TRACE /HPF Urine Casts NONE /LPF Urine Mucus MODERATE H /LPF Urine Other /HPF Urine Culture Indicated NO My Orders Orders - DOMONIQUE PALUMBO MD Cbc With Automated Diff (12/24/22 18:25) Comprehensive Metabolic Panel (12/24/22 18:25) Magnesium (12/24/22 18:25) Ua Culture If Indicated (12/24/22 18:25) Ed Iv/Invasive Line Start (12/24/22 18:25) Ekg Tracing (12/24/22 18:25) Monitor-Rhythm Ecg Trace Only (12/24/22 18:25) Morphine Injection (Morphine Injection (12/24/22 18:27) Ondansetron Injection (Zofran Injectio (12/24/22 18:30) Pelvis With Left Hip 2-3 Views (12/24/22 18:27) Chest 1 View, Ap/Pa Only (12/24/22 18:56) Myoglobin Serum (12/24/22 18:56) Protime With Inr (12/24/22 18:56) Partial Thromboplastin Time (12/24/22 18:56) O2 (12/24/22 18:56) Troponin I Babar (12/24/22 18:56) Alcohol (12/24/22 19:00) Clifford Cath (12/24/22 19:06) Lactated Ringers (Lr 1000 Ml Iv Solution (12/24/22 19:15) Morphine Injection (Morphine Injection (12/24/22 19:45) Morphine Injection (Morphine Injection (12/24/22 20:07) Morphine Injection (Morphine Injection (12/24/22 20:30) Morphine Injection (Morphine Injection (12/25/22 01:00) Medications Given in ED Current Medications Medications Dose Ordered Sig/Zoe Route Start Time Stop Time Status Last Admin Dose Admin Lactated Ringer's 1,000 ml @ 0 mls/hr Q0M ONCE IV 12/24/22 19:15 12/24/22 19:16 DC 12/24/22 19:23 999 MLS/HR Morphine Sulfate 4 mg ONCE ONCE IVP 12/25/22 01:00 12/25/22 01:01 DC 12/25/22 00:53 4 MG Morphine Sulfate 5 mg ONCE ONCE IVP 12/24/22 20:30 12/24/22 20:32 DC 12/24/22 20:24 5 MG Ondansetron HCl 4 mg ONCE ONCE IVP 12/24/22 18:30 12/24/22 18:31 DC 12/24/22 18:42 4 MG Vital Signs/I&O 12/24/22 12/24/22 18:18 18:18 Temp 36.8 Pulse 86 Resp 19 B/P (MAP) 136/116 (123) Pulse Ox 100 O2 Delivery Room Air Room Air Blood Pressure Mean: 123 Progress Progress Note #1: Time: 18:35 Progress Note Patient was interviewed and examined. Labs are being obtained along with EKG and telemetry to evaluate patient's lightheadedness. X-rays of the left hip and pelvis are pending. Pain is being treated with morphine. Progress Note #2: Time: 18:58 Progress Note X-rays and labs are still pending. EKG has been reviewed. There is subtle ST depression that is not likely clinically significant. No ST elevation or depression. Occasional PVC noted. Troponin and myoglobin have been added to the labs to further evaluate the changes seen on the EKG and patient's lightheadedness. Progress Note #3: Time: 19:15 Progress Note Left femoral neck fracture was noted on hip x-rays by my interpretation. We do not have an orthopedic surgeon available at this facility through December 26. Patient requests transfer to [facility] in [place]. Progress Note #4: Time: 19:48 Progress Note Was excepted to [facility] emergency room by Dr. Johnson. Patient is stable at this time. She has requested a second dose of morphine for pain control. All labs have been reviewed and are relatively unremarkable. CBC demonstrated a leukocytosis of 13. CMP demonstrated no significant abnormalities. Urinalysis was unremarkable and demonstrated no pyuria. Coags were normal. Toxicology screen was negative for alcohol. Troponin and myoglobin were normal. All labs were reviewed and interpreted by me. Radiologist's interpretation of the hip and pelvis x-rays confirmed my interpretation of displaced left femoral neck fracture. No other fractures were identified. Chest x-ray was interpreted as unremarkable by me, and this was confirmed by the radiologist's report. Vital signs remained stable and unremarkable. Transfer is pending EMS availability. At this time, transfer will likely not be available until around 2200 when [facility] will have a unit available. We have found no other neighboring EMS units available at this time. [facility] has been updated. A liter of LR is infusing for hydration. Initial ECG Impression Date: Dec 24, 2022 Initial ECG Impression Time: 18:47 Initial ECG Rate: 90 Initial ECG Rhythm: Normal Sinus Comment Sinus rhythm with no ST elevation. There is subtle ST depression that is not likely clinically significant. No abnormal intervals or axis deviation. Few PVCs noted. Diagnostic Imaging Diagonstic Imaging: Xray Plain Films/CT/US/NM/MRI: chest Comments NAME: UNRULY WOOD [facility] REC#: [id number] PT STATUS: REG ER : 1955 PHYSICIAN: DOMONIQUE PALUMBO MD ADMIT DATE: 12/24/22/ER Draft Date of Exam:12/24/22 CHEST 1 VIEW, AP/PA ONLY EXAMINATION: Chest radiograph, portable AP view. DATE: 12/24/2022 7:05 PM INDICATION: 67-year-old female, chest pain. COMPARISON: None. FINDINGS: Heart size and mediastinal contours are grossly unremarkable. There is no identified pneumothorax. There is no large pleural effusion. There is no identified focal airspace consolidation. There are degenerative changes of the spine. IMPRESSION: No identified acute cardiopulmonary abnormality. Dictated on workstation # [id number] Dict: 12/24/221918 Trans: 12/24/221927 PJ [id number] Interpreted by: KYA ALY MD Reviewed: Reviewed by Me Diagonstic Imaging: Xray Plain Films/CT/US/NM/MRI: pelvis, hip Comments NAME: UNRULY WOOD [facility] REC#: [id number] PT STATUS: REG ER : 1955 PHYSICIAN: DOMONIQUE PLAUMBO MD ADMIT DATE: 12/24/22/ER Signed Date of Exam:12/24/22 PELVIS WITH LEFT HIP 2-3 VIEWS EXAMINATION: Left hip radiographs, 2 views. Pelvis, single view. COMPARISON: None. HISTORY: 67-year-old female, left hip pain after fall. FINDINGS: There is a mildly displaced fracture of the left femoral neck. The left femoral head is not dislocated. There is no pronounced joint space loss of the left hip. The pubic symphysis and sacroiliac joints are normally aligned. The right hip joint space also appears to be well preserved. There are advanced degenerative changes of the lower lumbar spine. IMPRESSION: Mildly displaced left femoral neck fracture. Dictated by: Dictated on workstation # [id number] Dict: 12/24/221917 Trans: 12/24/221955 PJ [id number] Interpreted by: KYA ALY MD Electronically signed by: KYA ALY MD 12/24/221955 Reviewed: Reviewed by Me Departure Impression Primary Impression: Left displaced femoral neck fracture Additional Impression: Fall from furniture Qualified Codes: W08.XXXA - Fall from other furniture, initial encounter Disposition: XF [facility] HOSP Condition: Stable Transfer Transfer Reason: Exceeds level of care Time Spoke to Accepting Phy: 19:34 Transfer Progress Notes Transfer accepted by Dr. Johnson, ED physician at [facility] in [place]. Transfer Time: 01:05 Transfer Facility: [facility] Method of Transfer: EMS Departure-Patient Inst. Referrals: SEAN ARTEAGA MD (PCP) Primary Care Physician DOMONIQUE PALUMBO MD Dec 24, 2022 18:27
[2022-12-24] MEDS ORDERED: ONDANSETRON 4 MG/2 ML (SDV) Z0FRAN IVP ONE (18:30)
[2022-12-24 18:36] LABS: BASOPHILS % (AUTO) 0 % (0-10); EOSINOPHILS % (AUTO) 0 % (0-10); HEMATOCRIT 43 % (35-52); HEMOGLOBIN 14.6 g/dL (11.5-16.0); LYMPHOCYTES # (AUTO) 1.1 10^3/uL (1.0-4.0); LYMPHOCYTES % (AUTO) 9 % (12-44); MEAN CORPUSCULAR HEMOGLOBIN 31 pg (25-34); MEAN CORPUSCULAR HGB CONC 34 g/dL (32-36); MEAN CORPUSCULAR VOLUME 90 fL (80-99); MEAN PLATELET VOLUME 10.1 fL (9.0-12.2); MONOCYTES # (AUTO) 0.6 10^3/uL (0.0-1.0); MONOCYTES % (AUTO) 4 % (0-12); NEUTROPHILS # (AUTO) 11.3 10^3/uL (1.8-7.8); NEUTROPHILS % (AUTO) 86 % (42-75); PLATELET COUNT 279 10^3/uL (130-400); WHITE BLOOD COUNT 13.1 10^3/uL (4.3-11.0)
[2022-12-24 18:52] LABS: ALBUMIN 4.5 GM/DL (3.2-4.5); POTASSIUM 3.5 MMOL/L (3.6-5.0)
[2022-12-24 18:54] LABS: CALCIUM 9.9 MG/DL (8.5-10.1)
[2022-12-24 18:55] LABS: TOTAL PROTEIN 7.2 GM/DL (6.4-8.2)
[2022-12-24 18:57] LABS: BILIRUBIN,TOTAL 1.1 MG/DL (0.1-1.0)
[2022-12-24 18:58] LABS: CREATININE SERUM 1.09 MG/DL (0.60-1.30)
[2022-12-24 19:02] LABS: MAGNESIUM 1.6 MG/DL (1.6-2.4)
[2022-12-24] MEDS ORDERED: LACTATED RINGERS 1,000 ML IV ONE (19:15)
[2022-12-24 19:26] LABS: BILIRUBIN,URINE NEGATIVE (NEGATIVE); CLARITY,URINE CLEAR; COLOR,URINE YELLOW; GLUCOSE, URINE (UA) NEGATIVE (NEGATIVE); KETONES,URINE NEGATIVE (NEGATIVE); LEUKOCYTE ESTERASE ,URINE TRACE (NEGATIVE); NITRITE,URINE NEGATIVE (NEGATIVE); PROTEIN,URINE NEGATIVE (NEGATIVE)
--- NOTE | 2022-12-24 19:29 | Diagnostic Imaging Report ---
EXAMINATION: Left hip radiographs, 2 views. Pelvis, single view. COMPARISON: None. HISTORY: 67-year-old female, left hip pain after fall. FINDINGS: There is a mildly displaced fracture of the left femoral neck. The left femoral head is not dislocated. There is no pronounced joint space loss of the left hip. The pubic symphysis and sacroiliac joints are normally aligned. The right hip joint space also appears to be well preserved. There are advanced degenerative changes of the lower lumbar spine. IMPRESSION: Mildly displaced left femoral neck fracture. Dictated by: Dictated on workstation # [id number]
--- NOTE | 2022-12-24 19:29 | Diagnostic Imaging Report ---
EXAMINATION: Chest radiograph, portable AP view. DATE: 12/24/2022 7:05 PM INDICATION: 67-year-old female, chest pain. COMPARISON: None. FINDINGS: Heart size and mediastinal contours are grossly unremarkable. There is no identified pneumothorax. There is no large pleural effusion. There is no identified focal airspace consolidation. There are degenerative changes of the spine. IMPRESSION: No identified acute cardiopulmonary abnormality. Dictated by: Dictated on workstation # [id number]
[2022-12-24 19:42] LABS: AMORPHOUS SEDIMENT,UR FEW AMOR URATES /LPF; BACTERIA,URINE TRACE /HPF; RBC,URINE 0-2 /HPF; WBC,URINE 0-2 /HPF
[2022-12-24] MEDS ORDERED: morphine INJ 4 MG/ML 1 ML (VIAL/SYRINGE) ONE (20:07)
[2022-12-24] MEDS ORDERED: morphine INJ 4 MG/ML 1 ML (VIAL/SYRINGE) IVP ONE (20:30)
[2022-12-25 01:00] VITALS: BP 136/116
[2022-12-25] MEDS ORDERED: morphine INJ 4 MG/ML 1 ML (VIAL/SYRINGE) IVP ONE (01:00)
== END 2022-12-25 01:15 | disposition short-term general hospital (02) ==
LOC: EDUNIT# 18:15 → ER 18:17
DX: S72.002A Fracture of unspecified part of neck of left femur, initial encounter for closed fracture (principal); I49.3 Ventricular premature depolarization; Z88.5 Allergy status to narcotic agent; Z28.310 Unvaccinated for COVID-19; W08.XXXA Fall from other furniture, initial encounter; Y92.009 Unspecified place in unspecified non-institutional (private) residence as the place of occurrence of the external cause
CPT/HCPCS: 51702; 71045; 73502; 80053; 81000; 83735; 83874; 84484; 85025; 85610; 85730; 93005; 93041; 99285; G0480; 36415; 80320